=== PATIENT | female | born 1960 | race Caucasian/White ===

== ENCOUNTER 2019-04-05 10:39 | Inpatient (IN) | payer MEDICAID ==
[~2019-04-05] VITALS: Ht 162.6 cm; Wt 79.1 kg
[~2019-04-05 10:39] MED LIST: ASPI-1265 PO; BUSP15TA8 PO; CHLO25TA2 PO; CIPR7.5D2 EACH EAR; FLUO-213 PO; GABA600T13 PO; IBUP-1985; INSU100C10 SQ; LANTUS SUBCUT; LORA10TA7 PO; LOSA100T57 PO; METO10TA3 PO; OLAN2.5T3 PO; PANT-47 PO; POLY119P2 PO; PRAV20TA4 PO; SULF1TAB49 PO; TRAM50TA2 PO; TRAZ-251 PO
[2019-04-05] MEDS ORDERED: albuterol 2.5 MG/3 ML nebule CONTNEB PRN (11:25)
[2019-04-05] MEDS ORDERED: normal saline 1000ML IV soln IVB ONE ×2 (11:30→14:00)
[2019-04-05] MEDS ORDERED: methylPREDNISolone sod succ 125mg/2ml vial IV ONE (11:30)
[2019-04-05 11:45] LABS: BASOPHILS % (AUTO) 0.7 % (0-1); EOSINOPHILS # (AUTO) 0.1 X10'3 (0-0.9); EOSINOPHILS % (AUTO) 1.4 % (0-6); HEMATOCRIT 41.1 % (35.0-45.0); HEMOGLOBIN 14.2 g/dl (12.0-16.0); LYMPHOCYTES # (AUTO) 1.1 X10'3 (1.1-4.8); LYMPHOCYTES % (AUTO) 20.1 % (21-51); MEAN CORPUSCULAR HEMOGLOBIN 31.9 PG (27.0-31.0); MEAN CORPUSCULAR HGB CONC 34.5 g/dL (33.0-36.5); MEAN CORPUSCULAR VOLUME 92.6 FL (78-98); MEAN PLATELET VOLUME 7.5 FL (7.4-10.4); MONOCYTES # (AUTO) 0.6 X10'3 (0-0.9); MONOCYTES % (AUTO) 10.9 % (2-12); NEUTROPHILS # (AUTO) 3.7 X10'3 (1.8-7.7); NEUTROPHILS % (AUTO) 66.9 % (42-75); PLATELET COUNT 236 X10'3 (140-440); RED BLOOD COUNT 4.44 X10'6 (4.20-5.60); RED CELL DISTRIBUTION WIDTH 13.8 % (11.5-14.5); WHITE BLOOD COUNT 5.5 X10'3 (4.5-11.0)
[2019-04-05 11:57] LABS: PARTIAL THROMBOPLASTIN TIME 28 SECONDS (22-32)
--- NOTE | 2019-04-05 12:00 | NUR ---
RESPIRATORY AT BEDSIDE, BREATHING TREATMENT
[2019-04-05 12:07] LABS: ALANINE AMINOTRANSFERASE 21 U/L (12-78); ALBUMIN 3.5 G/DL (3.4-5.0); ALBUMIN/GLOBULIN RATIO 0.9 (1.1-1.5); ALKALINE PHOSPHATASE 67 IU/L (46-116); ANION GAP 9 (8-16); ASPARTATE AMINO TRANSFERASE 22 U/L (10-37); BILIRUBIN,TOTAL 0.5 MG/DL (0.1-1.0); BLOOD UREA NITROGEN 8 MG/DL (7-18); BUN/CREATININE RATIO 6.8 (6.6-38.0); CALCIUM 9.2 MG/DL (8.5-10.1); CHLORIDE 98 MMOL/L (99-107); CREATININE 1.17 MG/DL (0.40-0.90); GLUCOSE 257 MG/DL (70-104); SODIUM 139 MMOL/L (135-145); TOTAL CARBON DIOXIDE 32.4 MMOL/L (24-32); TOTAL PROTEIN 7.5 G/DL (6.4-8.2); eGFR 47 ML/MIN
[2019-04-05 12:15] LABS: POTASSIUM 2.7 MMOL/L (3.5-5.1)
[2019-04-05] MEDS ORDERED: azithromycin/NS 500mg/250ml 250 ML IV ONE (13:35)
[2019-04-05] MEDS ORDERED: potassium Cl 20 mEq SR tablet PO ONE (13:35)
[2019-04-05] MEDS ORDERED: magnesium 2GM in 50ml NS 50 ML IV PRN (13:55)
[2019-04-05] MEDS ORDERED: acetaminophen 325mg tablet PO PRN ×2 (13:55)
[2019-04-05] MEDS ORDERED: magnesium 4gm in 100ml NS 100 ML IV PRN (13:55)
[2019-04-05] MEDS ORDERED: potassium CL 10mEq/100ml bag 100 ML IV PRN ×2 (13:55)
[2019-04-05] MEDS ORDERED: ondansetron/PF 4mg/2ml inj IV PRN (13:55)
[2019-04-05] MEDS ORDERED: magnesium hydroxide 30ml (MOM) UD suspension PO PRN (13:55)
[2019-04-05] MEDS ORDERED: mag hydrox/Alum hydrox/simeth 30ml oral suspension PO PRN (13:55)
[2019-04-05] MEDS ORDERED: albuterol 2.5 MG/3 ML nebule NEB PRN (13:55)
[2019-04-05] MEDS ORDERED: METF-950 PO (14:25)
[2019-04-05] MEDS ORDERED: ONDA4TAB12 PO (14:27)
[2019-04-05] MEDS ORDERED: AMLO10TA13 PO (14:32)
[2019-04-05] MEDS ORDERED: ATOR40TA72 PO (14:32)
--- NOTE | 2019-04-05 14:46 | NUR ---
Dr. Ford is at the bedside, he is aware of the lactic acid level trending upward, order for repeat Lactic and BMP at 1600 obtained and entered in the computer. Pt is almost finished second liter of NSS bolus. Antibiotic infusion started as ordered.
[2019-04-05] MEDS ORDERED: INSU100I31 SQ (14:57)
[2019-04-05] MEDS ORDERED: glucagon, human recombinant 1mg kit SUBCUT PRN (15:05)
[2019-04-05] MEDS ORDERED: MESSAGE TO PHARMACY PO ONE (15:05)
[2019-04-05] MEDS ORDERED: dextrose ORAL solution 15 GM/59 ML bottle PO PRN ×2 (15:05)
[2019-04-05] MEDS ORDERED: dextrose 50%-water 50ml dispensing syringe IV PRN ×2 (15:05)
--- NOTE | 2019-04-05 15:27 | NUR ---
received report from angel brown
--- NOTE | 2019-04-05 15:28 | NUR ---
pt arrived on floor on [facility]
[2019-04-05 15:31] LABS: HEMOGLOBIN A1C 7.5 % (4.5-6.2)
[2019-04-05] MEDS: CefTRIAXone 2gm/D5W 50ml 50 ML IV SCH (16:15)
[2019-04-05 16:33] LABS: CHLORIDE 103 MMOL/L (99-107); GLUCOSE 290 MG/DL (70-104); SODIUM 142 MMOL/L (135-145); TOTAL CARBON DIOXIDE 28.1 MMOL/L (24-32)
[2019-04-05 16:34] LABS: ALBUMIN 3.4 G/DL (3.4-5.0); ANION GAP 11 (8-16); BLOOD UREA NITROGEN 9 MG/DL (7-18); BUN/CREATININE RATIO 7.3 (6.6-38.0); CALCIUM 8.4 MG/DL (8.5-10.1); CREATININE 1.23 MG/DL (0.40-0.90); eGFR 45 ML/MIN
[2019-04-05 16:39] LABS: POTASSIUM 2.9 MMOL/L (3.5-5.1)
[2019-04-05] MEDS: potassium Cl 20 mEq SR tablet PO PRN ×2 (16:41→21:28)
--- NOTE | 2019-04-05 16:48 | NUR ---
sent a page to hospitalist about pt elevated lactic acid level of 6.4, no new orders at this time
[2019-04-05] MEDS ORDERED: normal saline 1000ml 1,000 ML IVB ONE (17:24)
[2019-04-05 18:00] VITALS: BP 127/67
--- NOTE | 2019-04-05 18:34 | NUR ---
gave report to khari santiago rn
[2019-04-05] MEDS: normal saline 1000ml 1,000 ML IV SCH (19:30)
[2019-04-05] MEDS: insulin Lispro (HumaLOG) vial - multi-dose SQ SCH ×2 (19:39→21:30)
[2019-04-05] MEDS: K and/or MAG REPLACEMENT MC SCH (19:44)
[2019-04-05] MEDS ORDERED: methylPREDNISolone sod succ/PF 40mg inj. IV ONE (20:00)
[2019-04-05] MEDS: metoclopramide 10mg tablet PO SCH (20:18)
[2019-04-05] MEDS: ondansetron 4mg rapidly disintigrating tab PO SCH (20:18)
[2019-04-05] MEDS: busPIRone 15mg tablet PO SCH (20:18)
[2019-04-05] MEDS: traZODone 50mg tablet PO SCH (20:18)
[2019-04-05] MEDS: insulin glargine (Lantus) pen - multi-dose SQ SCH (21:31)
--- NOTE | 2019-04-05 21:56 | NUR ---
Notified MD Francois of Critical Lab value Lactic Acid 6.0. No new orders at this time.
[2019-04-05 22:00] VITALS: BP 129/72
[2019-04-06] MEDS: metoclopramide 10mg tablet PO SCH ×3 (01:19→17:37)
[2019-04-06] MEDS: potassium Cl 20 mEq SR tablet PO PRN (01:25)
[2019-04-06] MEDS: normal saline 1000ml 1,000 ML IV SCH (05:10)
[2019-04-06 06:07] LABS: BASOPHILS % (AUTO) 0.1 % (0-1); EOSINOPHILS % (AUTO) 0 % (0-6); HEMATOCRIT 39.7 % (35.0-45.0); HEMOGLOBIN 13.8 g/dl (12.0-16.0); LYMPHOCYTES # (AUTO) 0.8 X10'3 (1.1-4.8); LYMPHOCYTES % (AUTO) 8.5 % (21-51); MEAN CORPUSCULAR HEMOGLOBIN 32.3 PG (27.0-31.0); MEAN CORPUSCULAR HGB CONC 34.8 g/dL (33.0-36.5); MEAN PLATELET VOLUME 7.9 FL (7.4-10.4); MONOCYTES # (AUTO) 0.5 X10'3 (0-0.9); MONOCYTES % (AUTO) 5.1 % (2-12); NEUTROPHILS # (AUTO) 8.4 X10'3 (1.8-7.7); NEUTROPHILS % (AUTO) 86.3 % (42-75); PLATELET COUNT 260 X10'3 (140-440); RED BLOOD COUNT 4.27 X10'6 (4.20-5.60); RED CELL DISTRIBUTION WIDTH 13.8 % (11.5-14.5); WHITE BLOOD COUNT 9.8 X10'3 (4.5-11.0)
[2019-04-06 06:13] LABS: ALBUMIN 3.2 G/DL (3.4-5.0); ANION GAP 8 (8-16); BLOOD UREA NITROGEN 10 MG/DL (7-18); BUN/CREATININE RATIO 10.2 (6.6-38.0); CALCIUM 8.5 MG/DL (8.5-10.1); CHLORIDE 107 MMOL/L (99-107); CREATININE 0.98 MG/DL (0.40-0.90); GLUCOSE 259 MG/DL (70-104); POTASSIUM 4.6 MMOL/L (3.5-5.1); SODIUM 146 MMOL/L (135-145); TOTAL CARBON DIOXIDE 31.4 MMOL/L (24-32); eGFR 58 ML/MIN
[2019-04-06 06:19] LABS: MAGNESIUM 0.8 MG/DL (1.5-2.4)
--- NOTE | 2019-04-06 06:30 | NUR ---
Report given to Celia STRAUSS.
--- NOTE | 2019-04-06 06:49 | NUR ---
Patient in room [facility] 4009C. I have received report from ARGELIA Son RN and had the opportunity to ask questions and assume patient care.
--- NOTE | 2019-04-06 06:50 | NUR ---
PAGER ID: [phone] MESSAGE: MOHSEN [id number]: [facility] 4009C...CRITICAL LAB MG 0.8, WILL REPLACE PER PROTOCOL
[2019-04-06 07:01] VITALS: BP 126/75
[2019-04-06] MEDS: K and/or MAG REPLACEMENT MC SCH ×2 (07:22→20:00)
[2019-04-06] MEDS: loratadine 10mg tablet PO SCH (07:59)
[2019-04-06] MEDS: busPIRone 15mg tablet PO SCH ×2 (07:59→20:00)
[2019-04-06] MEDS: ondansetron 4mg rapidly disintigrating tab PO SCH ×2 (08:00→20:00)
[2019-04-06] MEDS: atorvastatin 20mg tablet PO SCH (08:00)
[2019-04-06] MEDS: amLODIPine 5mg tablet PO SCH (08:01)
[2019-04-06] MEDS: FLUoxetine 20mg capsule PO SCH (08:02)
[2019-04-06] MEDS: pantoprazole 40mg Tablet.DR PO SCH (08:02)
[2019-04-06] MEDS: magnesium Cl slow-release 64mg tablet PO PRN ×2 (08:05→20:44)
[2019-04-06] MEDS: enoxaparin 40mg/0.4ml syringe SQ SCH (08:07)
[2019-04-06] MEDS: CefTRIAXone 2gm/D5W 50ml 50 ML IV SCH (08:07)
[2019-04-06] MEDS: albuterol 2.5 MG/3 ML nebule NEB SCH ×4 (08:49→19:45)
[2019-04-06] MEDS: insulin Lispro (HumaLOG) vial - multi-dose SQ SCH ×3 (08:53→19:00)
[2019-04-06] MEDS: azithromycin/NS 500mg/250ml 250 ML IV SCH (09:28)
[2019-04-06 10:00] VITALS: BP 114/61
[2019-04-06] MEDS ORDERED: pneumococcal 23-VAL P-sac vacc 25 mcg/0.5ml vial IMVAC ONE (10:00)
--- NOTE | 2019-04-06 11:52 | NUR ---
DM Consult: A1C 7.5. Pt admit w/ sepsis secondary to clinical PNA and COPD exacerbation per MD. Pt seen by RD for written DM and verbal high protein eds w/ RD contact information provided. Pt is agreeable to lai bangl[place] yogurt at lunches; to have w/ dinner tonight given time. Dietary notified. LBM 04/03. DANDY d/w RN regarding addition of carb controlled to heart healthy diet per MD approval since cancelled in EMR. Mg 0.8 receiving replacement. Pt PO 75% avg first meals and reports strong appetite. Will continue to monitor for additional protein needs. Rec: 1. continue heart healthy/carb controlled meals 2. lai [place] yogurt at lunches per pt request 3. bowel care as needed 4. wt per rx Addendum: 04/06/19 at [address] Amended: Links added.
--- NOTE | 2019-04-06 15:09 | NUR ---
PAGER ID: [phone] MESSAGE: MOHSEN [id number]: [facility] [id number]...PT IS RECEIVING REGLAN SCHEDULED Q6H, BUT PT STATES SHE ONLY TAKES BEFORE MEALS...CAN WE CHANGE THE ORDER?
[2019-04-06 18:00] VITALS: BP 108/64
--- NOTE | 2019-04-06 18:11 | NUR ---
Problems reprioritized. Patient report given, questions answered & plan of care reviewed with CARLOS A MARES.
--- NOTE | 2019-04-06 18:38 | NUR ---
Patient in room [facility] 4009C. I have received report from CARLOS A Yang and had the opportunity to ask questions and assume patient care. Patient awake for bedside report and stable at this time. On room air and saline locked. Will continue to monitor closely.
[2019-04-06] MEDS: lactobacillus rhamnosus 10,000 MMU CELLS/CAPSULE PO SCH (20:42)
[2019-04-06] MEDS: traZODone 50mg tablet PO SCH (20:49)
[2019-04-06] MEDS: insulin glargine (Lantus) pen - multi-dose SQ SCH (20:52)
[2019-04-06 22:00] VITALS: BP 102/60
[2019-04-07 05:00] VITALS: BP 134/89
[2019-04-07 05:48] LABS: BASOPHILS % (AUTO) 0.6 % (0-1); EOSINOPHILS # (AUTO) 0.1 X10'3 (0-0.9); EOSINOPHILS % (AUTO) 1.3 % (0-6); HEMATOCRIT 37.3 % (35.0-45.0); HEMOGLOBIN 13.1 g/dl (12.0-16.0); LYMPHOCYTES # (AUTO) 2.2 X10'3 (1.1-4.8); MEAN CORPUSCULAR HEMOGLOBIN 32.4 PG (27.0-31.0); MEAN CORPUSCULAR HGB CONC 35.2 g/dL (33.0-36.5); MEAN CORPUSCULAR VOLUME 92.3 FL (78-98); MEAN PLATELET VOLUME 7.7 FL (7.4-10.4); MONOCYTES # (AUTO) 0.6 X10'3 (0-0.9); MONOCYTES % (AUTO) 7.2 % (2-12); NEUTROPHILS # (AUTO) 5.4 X10'3 (1.8-7.7); NEUTROPHILS % (AUTO) 64.9 % (42-75); PLATELET COUNT 242 X10'3 (140-440); RED BLOOD COUNT 4.04 X10'6 (4.20-5.60); RED CELL DISTRIBUTION WIDTH 13.7 % (11.5-14.5); WHITE BLOOD COUNT 8.3 X10'3 (4.5-11.0)
[2019-04-07 06:00] LABS: ALBUMIN 2.9 G/DL (3.4-5.0); ANION GAP 8 (8-16); BLOOD UREA NITROGEN 12 MG/DL (7-18); CALCIUM 8.7 MG/DL (8.5-10.1); CHLORIDE 104 MMOL/L (99-107); CREATININE 0.86 MG/DL (0.40-0.90); GLUCOSE 217 MG/DL (70-104); POTASSIUM 3.2 MMOL/L (3.5-5.1); SODIUM 144 MMOL/L (135-145); TOTAL CARBON DIOXIDE 31.8 MMOL/L (24-32); eGFR 68 ML/MIN
--- NOTE | 2019-04-07 06:22 | NUR ---
Patient in room [facility] 4009. I have received report from CARLOS A MARES and had the opportunity to ask questions and assume patient care.
--- NOTE | 2019-04-07 06:32 | NUR ---
Problems reprioritized. Patient report given, questions answered & plan of care reviewed with CARLOS A Yang.
[2019-04-07] MEDS: albuterol 2.5 MG/3 ML nebule NEB SCH ×4 (06:34→20:24)
--- NOTE | 2019-04-07 07:02 | NUR ---
PAGER ID: [phone] MESSAGE: MOHSEN [id number]-RE: [facility] 4009C...CRITICAL LAB MG 1.0, WILL REPLACE PER PROTOCOL, K+ 3.2 WILL REPLACE ALSO
[2019-04-07] MEDS: K and/or MAG REPLACEMENT MC SCH ×2 (07:10→20:00)
[2019-04-07] MEDS: ondansetron 4mg rapidly disintigrating tab PO SCH ×2 (08:00→20:00)
[2019-04-07] MEDS: metoclopramide 10mg tablet PO SCH ×3 (08:02→17:42)
[2019-04-07] MEDS: busPIRone 15mg tablet PO SCH ×2 (08:02→20:58)
[2019-04-07] MEDS: loratadine 10mg tablet PO SCH (08:03)
[2019-04-07] MEDS: lactobacillus rhamnosus 10,000 MMU CELLS/CAPSULE PO SCH ×2 (08:03→20:58)
[2019-04-07] MEDS: amLODIPine 5mg tablet PO SCH (08:04)
[2019-04-07] MEDS: atorvastatin 20mg tablet PO SCH (08:04)
[2019-04-07] MEDS: FLUoxetine 20mg capsule PO SCH (08:05)
[2019-04-07] MEDS: pantoprazole 40mg Tablet.DR PO SCH (08:05)
[2019-04-07] MEDS: magnesium Cl slow-release 64mg tablet PO PRN (08:06)
[2019-04-07] MEDS: potassium Cl 20 mEq SR tablet PO PRN ×3 (08:07→17:43)
[2019-04-07] MEDS: enoxaparin 40mg/0.4ml syringe SQ SCH (08:08)
[2019-04-07] MEDS: CefTRIAXone 2gm/D5W 50ml 50 ML IV SCH (08:10)
[2019-04-07 10:00] VITALS: BP 105/57
[2019-04-07] MEDS: insulin Lispro (HumaLOG) vial - multi-dose SQ SCH ×4 (10:13→21:09)
[2019-04-07] MEDS: azithromycin/NS 500mg/250ml 250 ML IV SCH (10:19)
[2019-04-07 18:00] VITALS: BP 132/79
--- NOTE | 2019-04-07 18:37 | NUR ---
Problems reprioritized. Patient report given, questions answered & plan of care reviewed with angel powell.
[2019-04-07] MEDS: traZODone 50mg tablet PO SCH (20:58)
[2019-04-07] MEDS: magnesium Cl slow-release 64mg tablet PO SCH (20:58)
[2019-04-07] MEDS: insulin glargine (Lantus) pen - multi-dose SQ SCH (21:09)
[2019-04-08 04:21] VITALS: BP 131/67
[2019-04-08 06:00] VITALS: BP 135/71
[2019-04-08 06:07] LABS: BASOPHILS % (AUTO) 0.6 % (0-1); EOSINOPHILS # (AUTO) 0.1 X10'3 (0-0.9); EOSINOPHILS % (AUTO) 1.8 % (0-6); HEMATOCRIT 40.3 % (35.0-45.0); LYMPHOCYTES % (AUTO) 27.2 % (21-51); MEAN CORPUSCULAR HGB CONC 34.6 g/dL (33.0-36.5); MEAN CORPUSCULAR VOLUME 92.3 FL (78-98); MEAN PLATELET VOLUME 7.8 FL (7.4-10.4); MONOCYTES # (AUTO) 0.7 X10'3 (0-0.9); MONOCYTES % (AUTO) 9.5 % (2-12); NEUTROPHILS # (AUTO) 4.4 X10'3 (1.8-7.7); NEUTROPHILS % (AUTO) 60.9 % (42-75); PLATELET COUNT 244 X10'3 (140-440); RED BLOOD COUNT 4.36 X10'6 (4.20-5.60); RED CELL DISTRIBUTION WIDTH 13.5 % (11.5-14.5); WHITE BLOOD COUNT 7.2 X10'3 (4.5-11.0)
[2019-04-08 06:18] LABS: ANION GAP 7 (8-16); BLOOD UREA NITROGEN 15 MG/DL (7-18); BUN/CREATININE RATIO 17.6 (6.6-38.0); CHLORIDE 103 MMOL/L (99-107); CREATININE 0.85 MG/DL (0.40-0.90); GLUCOSE 216 MG/DL (70-104); MAGNESIUM 1.2 MG/DL (1.5-2.4); POTASSIUM 3.7 MMOL/L (3.5-5.1); SODIUM 142 MMOL/L (135-145); TOTAL CARBON DIOXIDE 31.9 MMOL/L (24-32); eGFR 68 ML/MIN
--- NOTE | 2019-04-08 06:28 | NUR ---
REPORT GIVEN TO CARLOS A BALDERAS.
[2019-04-08] MEDS: metoclopramide 10mg tablet PO SCH ×3 (07:00→17:59)
[2019-04-08] MEDS: albuterol 2.5 MG/3 ML nebule NEB SCH ×4 (07:00→20:00)
--- NOTE | 2019-04-08 08:22 | NUR ---
Patient refused SVN tx @ this time. No Shortness of breath noted. PT EATING Addendum: 04/08/19 at 0823 by Kailey Robison RT Amended: Links added.
[2019-04-08] MEDS: insulin Lispro (HumaLOG) vial - multi-dose SQ SCH ×4 (08:54→21:07)
[2019-04-08] MEDS: azithromycin/NS 500mg/250ml 250 ML IV SCH (08:55)
[2019-04-08] MEDS: CefTRIAXone 2gm/D5W 50ml 50 ML IV SCH (08:55)
[2019-04-08] MEDS: atorvastatin 20mg tablet PO SCH (08:56)
[2019-04-08] MEDS: FLUoxetine 20mg capsule PO SCH (08:56)
[2019-04-08] MEDS: lactobacillus rhamnosus 10,000 MMU CELLS/CAPSULE PO SCH ×2 (08:56→20:08)
[2019-04-08] MEDS: pantoprazole 40mg Tablet.DR PO SCH (08:56)
[2019-04-08] MEDS: magnesium Cl slow-release 64mg tablet PO SCH ×2 (08:56→20:09)
[2019-04-08] MEDS: busPIRone 15mg tablet PO SCH ×2 (08:56→20:08)
[2019-04-08] MEDS: ondansetron 4mg rapidly disintigrating tab PO SCH ×2 (08:56→20:09)
[2019-04-08] MEDS: loratadine 10mg tablet PO SCH (08:57)
[2019-04-08] MEDS: enoxaparin 40mg/0.4ml syringe SQ SCH (08:57)
[2019-04-08] MEDS: amLODIPine 5mg tablet PO SCH (08:57)
[2019-04-08] MEDS: K and/or MAG REPLACEMENT MC SCH ×2 (08:58→20:00)
[2019-04-08 10:00] VITALS: BP 120/75
[2019-04-08 18:00] VITALS: BP 120/61
--- NOTE | 2019-04-08 18:14 | NUR ---
Problems reprioritized. Patient report given, questions answered & plan of care reviewed with Priscilla STRAUSS.
--- NOTE | 2019-04-08 18:17 | NUR ---
Patient in room [facility]TH[facility] 4009. I have received report from Joanna STRAUSS and had the opportunity to ask questions and assume patient care.
[2019-04-08] MEDS: traZODone 50mg tablet PO SCH (20:09)
--- NOTE | 2019-04-08 20:32 | NUR ---
Patient wishes to have pneumonia shot done in the AM.
[2019-04-08] MEDS: insulin glargine (Lantus) pen - multi-dose SQ SCH (21:06)
[2019-04-08 22:00] VITALS: BP 114/56
[2019-04-09 06:00] VITALS: BP 123/79
--- NOTE | 2019-04-09 06:27 | NUR ---
Problems reprioritized. Patient report given, questions answered & plan of care reviewed with Joanna STRAUSS.
[2019-04-09 06:50] LABS: BASOPHILS % (AUTO) 0.5 % (0-1); EOSINOPHILS # (AUTO) 0.1 X10'3 (0-0.9); EOSINOPHILS % (AUTO) 2.1 % (0-6); HEMATOCRIT 41.1 % (35.0-45.0); HEMOGLOBIN 14.2 g/dl (12.0-16.0); LYMPHOCYTES # (AUTO) 1.8 X10'3 (1.1-4.8); LYMPHOCYTES % (AUTO) 27.1 % (21-51); MEAN CORPUSCULAR HEMOGLOBIN 32.1 PG (27.0-31.0); MEAN CORPUSCULAR HGB CONC 34.5 g/dL (33.0-36.5); MEAN CORPUSCULAR VOLUME 92.9 FL (78-98); MEAN PLATELET VOLUME 7.6 FL (7.4-10.4); MONOCYTES # (AUTO) 0.6 X10'3 (0-0.9); MONOCYTES % (AUTO) 8.8 % (2-12); NEUTROPHILS # (AUTO) 4.1 X10'3 (1.8-7.7); NEUTROPHILS % (AUTO) 61.5 % (42-75); PLATELET COUNT 274 X10'3 (140-440); RED BLOOD COUNT 4.43 X10'6 (4.20-5.60); RED CELL DISTRIBUTION WIDTH 13.5 % (11.5-14.5); WHITE BLOOD COUNT 6.7 X10'3 (4.5-11.0)
[2019-04-09] MEDS: albuterol 2.5 MG/3 ML nebule NEB SCH ×2 (07:00→11:23)
[2019-04-09] MEDS: CefTRIAXone 2gm/D5W 50ml 50 ML IV SCH (07:19)
[2019-04-09] MEDS: azithromycin/NS 500mg/250ml 250 ML IV SCH (07:19)
[2019-04-09] MEDS: FLUoxetine 20mg capsule PO SCH (07:20)
[2019-04-09] MEDS: metoclopramide 10mg tablet PO SCH ×2 (07:20→12:53)
[2019-04-09] MEDS: enoxaparin 40mg/0.4ml syringe SQ SCH (07:20)
[2019-04-09] MEDS: pantoprazole 40mg Tablet.DR PO SCH (07:20)
[2019-04-09] MEDS: loratadine 10mg tablet PO SCH (07:20)
[2019-04-09] MEDS: amLODIPine 5mg tablet PO SCH (07:20)
[2019-04-09] MEDS: magnesium Cl slow-release 64mg tablet PO SCH (07:21)
[2019-04-09] MEDS: atorvastatin 20mg tablet PO SCH (07:21)
[2019-04-09] MEDS: lactobacillus rhamnosus 10,000 MMU CELLS/CAPSULE PO SCH (07:21)
[2019-04-09] MEDS: busPIRone 15mg tablet PO SCH (07:24)
[2019-04-09 07:30] LABS: ANION GAP 9 (8-16); BLOOD UREA NITROGEN 16 MG/DL (7-18); BUN/CREATININE RATIO 16.5 (6.6-38.0); CHLORIDE 102 MMOL/L (99-107); CREATININE 0.97 MG/DL (0.40-0.90); GLUCOSE 282 MG/DL (70-104); MAGNESIUM 1.5 MG/DL (1.5-2.4); POTASSIUM 4.1 MMOL/L (3.5-5.1); SODIUM 139 MMOL/L (135-145); TOTAL CARBON DIOXIDE 28.5 MMOL/L (24-32); eGFR 59 ML/MIN
[2019-04-09] MEDS: K and/or MAG REPLACEMENT MC SCH (07:38)
[2019-04-09 07:49] LABS: CALCIUM 9.5 MG/DL (8.5-10.1)
[2019-04-09] MEDS: ondansetron 4mg rapidly disintigrating tab PO SCH (08:00)
[2019-04-09] MEDS: insulin Lispro (HumaLOG) vial - multi-dose SQ SCH (09:22)
[2019-04-09 10:00] VITALS: BP 118/68
[2019-04-09] MEDS ORDERED: CEFD300C3 PO (11:57)
[2019-04-09] MEDS ORDERED: AZIT-63 PO (11:57)
--- NOTE | 2019-04-09 12:59 | NUR ---
IV taken out, patient eating and discharge instructions given.
--- NOTE | 2019-04-09 13:15 | NUR ---
Wheeled patient out to front, for [employer]et [employer].
--- NOTE | 2019-04-09 13:28 | NUR ---
patient denied coverage and will recheck BS at home to cover. Addendum: 04/09/19 at 1329 by Joanna Sims RN Amended: Links added.
== END 2019-04-09 13:00 | disposition home or self-care (01) | DRG 720 ==
LOC: ER 10:40 → ED HOLD 13:54 → ORTHO 4S 15:35
PROVIDERS: ADMIT Hospitalist; ATTEND Family Medicine
DX: A41.9 Sepsis, unspecified organism (principal); N17.9 Acute kidney failure, unspecified; J18.9 Pneumonia, unspecified organism; E87.2 Acidosis; E83.42 Hypomagnesemia; E86.0 Dehydration; J44.1 Chronic obstructive pulmonary disease with (acute) exacerbation; J44.0 Chronic obstructive pulmonary disease with (acute) lower respiratory infection; E11.9 Type 2 diabetes mellitus without complications; E87.6 Hypokalemia; F17.200 Nicotine dependence, unspecified, uncomplicated; F32.9 Major depressive disorder, single episode, unspecified; I10 Essential (primary) hypertension; Z86.73 Personal history of transient ischemic attack (TIA), and cerebral infarction without residual deficits; Z59.0 Homelessness; Z88.8 Allergy status to other drugs, medicaments and biological substances; Z79.899 Other long term (current) drug therapy; Z79.82 Long term (current) use of aspirin
CPT/HCPCS: 36415; 71045; 80048; 80053; 82948; 83036; 83605; 83735; 83880; 84484; 85025; 85610; 85730; 87040; 87081; 87502; 87503; 94010; 94640; 94760; 96374; 97110; 97116; 97161; 99285; G0378; J0456; J0696; J1650; J1815; J2920; J2930; J7030; J8597